=== PATIENT | male | born 1945 | race Caucasian/White ===

== ENCOUNTER 2018-03-21 01:08 | Emergency (ER) | payer OTHER, MEDICARE ==
[~2018-03-21] VITALS: Ht 177.8 cm; Wt 70.3 kg
[~2018-03-21 01:08] MED LIST: FLOMAX0.4 M1 PO; KETOROLAC TROME10 M1 PO; ZOFRAN4 M2 SL
--- NOTE | 2018-03-21 01:33 | ED GENERAL ADULT ---
History of Present Illness General Chief Complaint: Fall Stated Complaint: "FELL DOWN COMPLETE SET OF STAIRS" Source: patient Exam Limitations: no limitations Vital Signs & Intake/Output Vital Signs & Intake/Output Vital Signs Date Time Temp Pulse Resp B/P B/P Pulse O2 O2 Flow FiO2 Mean Ox Delivery Rate 03/21 0427 97.0 60 18 154/86 100 Room Air 03/21 0121 96.7 100 16 150/88 98 Room Air Allergies Coded Allergies: NO KNOWN ALLERGIES (02/11/16) NKA PER ANTIBIOTIC ORDER SHEET - SJS Reconcile Medications Ketorolac Tromethamine 10 MG TABLET 1 TAB PO TID PRN PAIN Ondansetron HCl (Zofran) 4 MG TABLET 1 TAB SL Q4-6 PRN NAUSEA Tamsulosin HCl (Flomax) 0.4 MG CAP.ER.24H 1 CAP PO DAILY KIDNEY STONE Triage Note: 72YO MALE TO TRIAGE W/CO FALL DOWN STAIRS TONITE. DENIES ANY LOC. CO NECK PAIN, MID BACK AREA. Triage Nurses Notes Reviewed? yes Onset: Abrupt Duration: hour(s): Timing: single episode today HPI: 72 year old man with past medical history of peripheral neuropathy presents after suffering a mechanical fall. Patient reports recently being prescribed gabapentin for his peripheral neuropathy. Today was the first day that he took 100 mg 3 times a day. He says he was adamant. He awoke this evening confused and went to use the rest room when he fell down a flight of 13 stairs. He believes he briefly lost consciousness, he says he fell down hitting his left upper ribs and head. EMS was contacted and he was brought to the ED. Presently he is complaining of moderate neck discomfort and back discomfort. He is awake and alert and denies any other complaints such as fever, chest pain, or abdominal pain. Past History Travel History Traveled to [place] past 21 day No Medical History Any Pertinent Medical History? see below for history Neurological: NONE EENT: NONE Cardiovascular: NONE Respiratory: NONE Gastrointestinal: NONE Hepatic: NONE Renal: nephrolithiasis Musculoskeletal: FX RIBS, CLAVICLE,VERTEBR Psychiatric: NONE Endocrine: NONE Blood Disorders: NONE Cancer(s): bladder cancer, prostate cancer LINEMAN A CLASS/Reproductive: NONE Surgical History Surgical History: non-contributory Psychosocial History What is your primary language Yakut Tobacco Use: Quit >30 days ago Family History Hx Contributory? No Review of Systems Review of Systems Constitutional: Reports: see HPI. Denies: fever, weakness. EENTM: Reports: see HPI. Respiratory: Denies: short of breath. Cardiovascular: Denies: chest pain. GI: Denies: abdominal pain. Genitourinary: Reports: no symptoms. Musculoskeletal: Reports: see HPI. Skin: Reports: see HPI. Neurological/Psychological: Reports: headache. Hematologic/Endocrine: Reports: no symptoms. Immunologic/Allergic: Reports: no symptoms. Physical Exam Physical Exam General Appearance: well developed/nourished, no apparent distress, alert, awake , comfortable Head: minor abrasion to top of scalp Eyes: Bilateral: normal appearance, PERRL, EOMI. Ears, Nose, Throat: normal pharynx, normal ENT inspection, hearing grossly normal Neck: normal inspection, supple, limited range of motion, Moderate cervical spine tenderness without any crepitus, deformity, or step offs Respiratory: normal breath sounds, chest non-tender, no respiratory distress, quiet respiration, lungs clear Cardiovascular: regular rate/rhythm, normal peripheral pulses Gastrointestinal: soft, non-tender Back: normal inspection, decreased range of motion, Moderate tenderness to left MIDDLE RIBS. Extremities: normal inspection, normal range of motion, no edema Neurologic/Psych: no motor/sensory deficits, awake, alert, oriented x 3, normal gait, normal mood/affect, alcohol law enforcement agent [id number] nml as tested Skin: intact, normal color, warm/dry Comments: Physical examination reveals tenderness to the right temporal occipital area, there is a contusion. Neck shows decreased range of motion. Tenderness to the left mid ribs. No abdominal tenderness. No tenderness to the left upper quadrant of the abdomen. Core Measures ACS in differential dx? No CVA/TIA Diagnosis: No Sepsis Present: No Sepsis Focused Exam Completed? No Progress Differential Diagnoses I considered the following diagnoses in my evaluation of the patient: adverse drug reaction, mechanical fall, cervical spine trauma, rib fracture, head trauma , concussion, intracranial bleed Plan of Care: Orders Procedure Date/time Status EKG 03/21 147 Active Initial ED EKG: normal sinus rhythm (PAC) Prior EKG: unchanged Comments: PATIENT: EDISON MCKEON PRESENT AGE: 72 PATIENT ACCOUNT NO: [id number] : 43 LOCATION: [facility] ORDERING PHYSICIAN: Jadon Hayes DO SERVICE DATE: 03/21/180147 EXAM TYPE: CAT - CT CERV SPINE WO IV CONTRAST; CT HEAD WO IV CONTRAST EXAMINATION: NONCONTRAST HEAD CT NONCONTRAST CERVICAL SPINE CT INDICATION INFORMATION: Fall down 13 stairs. Neck and back pain. COMPARISON: MRI 05/01/2017. TECHNIQUE: Separate noncontrast CT examinations of the head and cervical spine were performed. Coronal and sagittal images were created for each examination at the technologist workstation. DLP: 1120 mGy-cm FINDINGS: Head: There is no evidence of acute intracranial hemorrhage or territorial infarction. No abnormal mass effect or midline shift is seen. Villegas to white matter differentiation is well preserved. No extra-axial fluid collections are identified. No hydrocephalus. No significant volume loss. Patchy periventricular and deep white matter hypoattenuation is consistent with mild small vessel ischemic changes. Mild right frontal soft tissue swelling with subgaleal hematoma. No underlying calvarial fracture. The mastoid air cells and visualized portions of the paranasal sinuses are well aerated. Cervical spine: There is anatomic alignment of the vertebral bodies and posterior elements. The atlantoaxial and atlantooccipital articulations are intact. Vertebral body heights are maintained. There is multilevel intervertebral disc space narrowing with endplate osteophyte formation and facet arthropathy. Partial calcification of the posterior longitudinal ligament at the C5 level. No evidence of acute fracture. No prevertebral soft tissue swelling. Visualized portions of the lung apices are unremarkable. The thyroid gland is unremarkable. IMPRESSION: No acute intracranial findings. Mild right frontal soft tissue swelling. No acute fracture or malalignment of the cervical spine. Mild to moderate multilevel degenerative changes. DICTATED BY: Alex Newell MD DATE/TIME DICTATED:03/21/18321 QUALITY CONTROL INSPECTOR:SHEMAR DATE/TIME TRANSCRIBED:03/21/18321 CONFIDENTIAL, DO NOT COPY WITHOUT APPROPRIATE AUTHORIZATION. <Electronically signed in Other Vendor System> SIGNED BY: Alex Newell MD 03/21 Patient attributes his confusion with his falling down the stairs to his recently started medication gabapentin. Presently his neck and left ribs are moderately painful for which he was given acetaminophen. His vital signs are significant for mildly elevated heart rate and blood pressure likely due to pain. CT Chest / Cervical Spine is ordered to assess for occult trauma which were unremarkable. EKG demonstrates LAFB. Rib series radiograph was unremarkable. Clinically patient appears to have had an adverse drug reaction due to gabapentin. Patient is instructed to stop taking gabapentin and to follow up with his PCP. Departure Departure Disposition: STILL A PATIENT Condition: Stable Clinical Impression Primary Impression: Fall Secondary Impressions: Adverse drug effect Referrals: Maggie CHO,Arthur Vieyra (PCP/Family) Departure Forms: Customer Survey General Discharge Information Comments 03/21/2018 4:30 AM The patient is awake alert oriented 3. He has no complaints. CT scan of the head and neck are negative. X-ray of the left ribs are negative for fracture. His vital signs were repeated, there is no tachycardia, he has no left upper quadrant abdominal tenderness. He scan of the head and neck were negative the results are shown below PATIENT: EDISON MCKEON PRESENT AGE: 72 PATIENT ACCOUNT NO: [id number] : 43 LOCATION: [facility] ORDERING PHYSICIAN: Jadon Hayes DO SERVICE DATE: 03/21/18 EXAM TYPE: CAT - CT CERV SPINE WO IV CONTRAST; CT HEAD WO IV CONTRAST EXAMINATION: NONCONTRAST HEAD CT NONCONTRAST CERVICAL SPINE CT INDICATION INFORMATION: Fall down 13 stairs. Neck and back pain. COMPARISON: MRI 05/01/2017. TECHNIQUE: Separate noncontrast CT examinations of the head and cervical spine were performed. Coronal and sagittal images were created for each examination at the technologist workstation. DLP: 1120 mGy-cm FINDINGS: Head: There is no evidence of acute intracranial hemorrhage or territorial infarction. No abnormal mass effect or midline shift is seen. Villegas to white matter differentiation is well preserved. No extra-axial fluid collections are identified. No hydrocephalus. No significant volume loss. Patchy periventricular and deep white matter hypoattenuation is consistent with mild small vessel ischemic changes. Mild right frontal soft tissue swelling with subgaleal hematoma. No underlying calvarial fracture. The mastoid air cells and visualized portions of the paranasal sinuses are well aerated. Cervical spine: There is anatomic alignment of the vertebral bodies and posterior elements. The atlantoaxial and atlantooccipital articulations are intact. Vertebral body heights are maintained. There is multilevel intervertebral disc space narrowing with endplate osteophyte formation and facet arthropathy. Partial calcification of the posterior longitudinal ligament at the C5 level. No evidence of acute fracture. No prevertebral soft tissue swelling. Visualized portions of the lung apices are unremarkable. The thyroid gland is unremarkable. IMPRESSION: No acute intracranial findings. Mild right frontal soft tissue swelling. No acute fracture or malalignment of the cervical spine. Mild to moderate multilevel degenerative changes. DICTATED BY: Alex Newell MD DATE/TIME DICTATED:03/21/18321 QUALITY CONTROL INSPECTOR:SHEMAR DATE/TIME TRANSCRIBED:03/21/18321 CONFIDENTIAL, DO NOT COPY WITHOUT APPROPRIATE AUTHORIZATION. <Electronically signed in Other Vendor System> SIGNED BY: Reece CHO,Alex 03/21 x-ray of bilateral ribs were negative for fracture or pneumothorax. Critical Care Note Critical Care Note Critical Care Time: non-applicable
--- NOTE | 2018-03-21 03:28 | CT SCAN REPORT ---
EXAMINATION: NONCONTRAST HEAD CT NONCONTRAST CERVICAL SPINE CT INDICATION INFORMATION: Fall down 13 stairs. Neck and back pain. COMPARISON: MRI 05/01/2017. TECHNIQUE: Separate noncontrast CT examinations of the head and cervical spine were performed. Coronal and sagittal images were created for each examination at the technologist workstation. DLP: 1120 mGy-cm FINDINGS: Head: There is no evidence of acute intracranial hemorrhage or territorial infarction. No abnormal mass effect or midline shift is seen. Villegas to white matter differentiation is well preserved. No extra-axial fluid collections are identified. No hydrocephalus. No significant volume loss. Patchy periventricular and deep white matter hypoattenuation is consistent with mild small vessel ischemic changes. Mild right frontal soft tissue swelling with subgaleal hematoma. No underlying calvarial fracture. The mastoid air cells and visualized portions of the paranasal sinuses are well aerated. Cervical spine: There is anatomic alignment of the vertebral bodies and posterior elements. The atlantoaxial and atlantooccipital articulations are intact. Vertebral body heights are maintained. There is multilevel intervertebral disc space narrowing with endplate osteophyte formation and facet arthropathy. Partial calcification of the posterior longitudinal ligament at the C5 level. No evidence of acute fracture. No prevertebral soft tissue swelling. Visualized portions of the lung apices are unremarkable. The thyroid gland is unremarkable. IMPRESSION: No acute intracranial findings. Mild right frontal soft tissue swelling. No acute fracture or malalignment of the cervical spine. Mild to moderate multilevel degenerative changes.
--- NOTE | 2018-03-21 04:10 | RADIOLOGY REPORT ---
EXAMINATION: XR RIBS, BILATERAL CLINICAL INFORMATION: Pain in the ribs COMPARISON: 08/14/2017 TECHNIQUE: PA view of the chest. 3 views of the right ribs. 3 views of the left ribs. FINDINGS: Lungs are clear. No consolidation, pneumothorax, or pleural effusion. The cardiomediastinal silhouette and pulmonary vasculature are normal. Osseous structures are unremarkable. Ribs are intact. No fractures are identified. IMPRESSION: Clear lungs. No focal rib abnormality identified.
[2018-03-21 04:27] VITALS: BP 154/86
== END 2018-03-21 05:00 ==
LOC: ERH 01:08
DX: T50.991A Poisoning by other drugs, medicaments and biological substances, accidental (unintentional), initial encounter (principal)
CPT/HCPCS: 71111; 93005; 93010